=== PATIENT | female | born 1960 | race Asian ===

== ENCOUNTER 2017-11-06 16:44 | Emergency (ER) | payer SELFPAY ==
[~2017-11-06] VITALS: Ht 157.5 cm; Wt 56.8 kg
[2017-11-06] MEDS ORDERED: DIAZEPAM 5 MG TABLET PO ONE (19:00)
[2017-11-06] MEDS ORDERED: KETOROLAC TROMETHAMINE 10 MG TABLET PO ONE (19:00)
[2017-11-06 19:54] VITALS: BP 137/79
== END 2017-11-06 20:05 | disposition home or self-care (01) ==
LOC: EMS 16:46
DX: M53.3 Sacrococcygeal disorders, not elsewhere classified (principal); V49.50XA Passenger injured in collision with unspecified motor vehicles in traffic accident, initial encounter; Y93.89 Activity, other specified; Y92.89 Other specified places as the place of occurrence of the external cause; Y99.8 Other external cause status
CPT/HCPCS: 99283